=== PATIENT | male | born 1985 | race African-American/Black ===

== ENCOUNTER 2019-10-05 19:46 | Inpatient (IN) | payer BC ==
[~2019-10-05] VITALS: Ht 180.3 cm; Wt 103.4 kg
[2019-10-05] VITALS: BP 180/99
[2019-10-05 19:49] VITALS: BP 187/74
[2019-10-05] MEDS ORDERED: PIPERACILLIN/TAZOBACTAM 3.375 GM in DEXTROSE 5% 50 ML IV ONE (20:15)
[2019-10-05] MEDS ORDERED: LEVOFLOXACIN 750 MG/D5W PREMIX 150 ML IV ONE (20:15)
[2019-10-05] MEDS ORDERED: NACL 0.9% 1,000 ML IV ONE (20:15)
[2019-10-05] MEDS ORDERED: PIPERACILLIN/TAZOBACTAM 3.375 GM VIAL IV ONE (21:04)
[2019-10-05 21:10] LABS: PROTHROMBIN TIME 10.8 secs (10.8-13.4)
[2019-10-05 21:11] LABS: ANION GAP 16.1 (8-16); CARBON DIOXIDE 25.9 mmol/L (21-32); CREATININE 0.8 mg/dL (0.6-1.3); TOTAL BILIRUBIN 0.6 mg/dL (0.0-1.0)
[2019-10-05] MEDS: NACL 0.9% 1,000 ML IV SCH ×2 (21:13→22:05)
[2019-10-05] MEDS ORDERED: ONDANSETRON 4 MG/2 ML VIAL IVP PRN ×2 (21:15→22:00)
[2019-10-05] MEDS ORDERED: BLOOD GLUCOSE MONITORING 1 DEV DEV FS ONE (21:15)
[2019-10-05] MEDS ORDERED: MEPERIDINE 25 MG/ML SYR IVP PRN (21:15)
[2019-10-05] MEDS ORDERED: HYDROmorphone 1 MG/ML AMP IVP PRN (21:15)
[2019-10-05 21:18] LABS: BASOPHILS # (AUTO) 0.1 K/uL (0.00-0.22); BASOPHILS % (AUTO) 0.4 % (0.0-2.0); EOSINOPHILS % (AUTO) 0.1 % (0.0-4.0); HEMATOCRIT 34.8 % (36-52); HEMOGLOBIN 11.2 g/dL (12.0-18.0); LYMPHOCYTES # (AUTO) 1.4 K/uL (2.0-11.5); LYMPHOCYTES % (AUTO) 9.5 % (20.5-51.1); MEAN CORPUSCULAR HEMOGLOBIN 26 pg (27-31); MEAN CORPUSCULAR HGB CONC 32 g/dL (33-37); MEAN CORPUSCULAR VOLUME 80.1 fL (80-94); MONOCYTES # (AUTO) 0.7 K/uL (0.8-1.0); MONOCYTES % (AUTO) 4.4 % (1.7-9.3); NEUTROPHILS % (AUTO) 85.6 % (42.2-75.2); PLATELET COUNT (AUTO) 471 K/uL (140-450); RED BLOOD CELL COUNT(AUTO) 4.34 MIL/uL (4.20-6.10); RED CELL DISTRIBUTION WIDTH 12.7 % (11.6-13.7); WHITE BLOOD COUNT (AUTO) 15.2 K/uL (4.8-10.8)
[2019-10-05] MEDS ORDERED: BUPIVACAINE-MPF 0.5% 30 ML VIAL INJ ONE (21:30)
[2019-10-05] MEDS ORDERED: LIDOCAINE 2% 1000 MG/50 ML VIAL INJ ONE (21:30)
[2019-10-05] MEDS ORDERED: LABETALOL 100 MG/20 ML VIAL ONE (21:33)
[2019-10-05] MEDS ORDERED: MIDAZOLAM 2 MG/2 ML VIAL ONE (21:33)
[2019-10-05] MEDS ORDERED: METOPROLOL 5 MG/5 ML VIAL ONE (21:33)
[2019-10-05] MEDS ORDERED: fentaNYL citrate 0.05 MG/ML VIAL ONE (21:33)
[2019-10-05] MEDS ORDERED: MAG SULF 2000 MG/WATER PREMIX 50 ML IV PRN (22:00)
[2019-10-05] MEDS ORDERED: ACETAMINOPHEN 325 MG TAB PO PRN (22:00)
[2019-10-05] MEDS ORDERED: DOCUSATE SODIUM 100 MG GELCAP PO PRN (22:00)
[2019-10-05] MEDS ORDERED: VANCOMYCIN PER PHARMACY MC PRN (22:00)
[2019-10-05] MEDS ORDERED: ZOLPIDEM 10 MG TAB PO PRN (22:00)
[2019-10-05] MEDS ORDERED: LORazepam 2 MG/ML VIAL IVP PRN (22:00)
[2019-10-05] MEDS ORDERED: MORPHINE SULFATE 2 MG/ML SYR IVP PRN (22:00)
[2019-10-05] MEDS ORDERED: DEXTROSE 50% 50 ML SYR IVP PRN (22:00)
[2019-10-05] MEDS ORDERED: POTASSIUM CHLORIDE 10 MEQ TABER PO PRN (22:00)
[2019-10-05] MEDS: LABETALOL 100 MG/20 ML VIAL IVP ONE ×2 (22:40→22:50)
[2019-10-06] MEDS ORDERED: METOPROLOL 25 MG TAB ONE (00:29)
[2019-10-06] MEDS ORDERED: METOPROLOL 25 MG TAB PO SCH ×2 (02:49→09:00)
[2019-10-06] MEDS: NACL 0.9% 1,000 ML IV SCH ×5 (05:33→22:40)
[2019-10-06] MEDS: INSULIN LISPRO SLIDING SCALE 100 UNITS/ML VIAL SUBQ PRN ×2 (06:22→18:38)
[2019-10-06 06:25] LABS: BASOPHILS # (AUTO) 0.1 K/uL (0.00-0.22); BASOPHILS % (AUTO) 0.5 % (0.0-2.0); EOSINOPHILS % (AUTO) 0.3 % (0.0-4.0); HEMATOCRIT 29.5 % (36-52); HEMOGLOBIN 9.6 g/dL (12.0-18.0); LYMPHOCYTES # (AUTO) 1.3 K/uL (2.0-11.5); LYMPHOCYTES % (AUTO) 10.8 % (20.5-51.1); MEAN CORPUSCULAR HEMOGLOBIN 26 pg (27-31); MEAN CORPUSCULAR HGB CONC 33 g/dL (33-37); MEAN CORPUSCULAR VOLUME 80.6 fL (80-94); MONOCYTES # (AUTO) 0.9 K/uL (0.8-1.0); MONOCYTES % (AUTO) 7.2 % (1.7-9.3); NEUTROPHILS # (AUTO) 9.8 K/uL (1.8-7.7); NEUTROPHILS % (AUTO) 81.2 % (42.2-75.2); PLATELET COUNT (AUTO) 366 K/uL (140-450); RED BLOOD CELL COUNT(AUTO) 3.66 MIL/uL (4.20-6.10); RED CELL DISTRIBUTION WIDTH 12.8 % (11.6-13.7)
[2019-10-06 06:44] LABS: CARBON DIOXIDE 26.5 mmol/L (21-32); CREATININE 0.7 mg/dL (0.6-1.3); POTASSIUM 3.5 mmol/L (3.5-5.1)
[2019-10-06] MEDS ORDERED: ZOLPIDEM 10 MG TAB PO PRN (07:45)
[2019-10-06] MEDS ORDERED: POTASSIUM CHLORIDE 10 MEQ TABER PO PRN (07:45)
[2019-10-06] MEDS ORDERED: LORazepam 2 MG/ML VIAL IVP PRN (07:45)
[2019-10-06] MEDS ORDERED: MORPHINE SULFATE 2 MG/ML SYR IVP PRN (07:45)
[2019-10-06] MEDS ORDERED: DOCUSATE SODIUM 100 MG GELCAP PO PRN (07:45)
[2019-10-06] MEDS ORDERED: ONDANSETRON 4 MG/2 ML VIAL IVP PRN (07:45)
[2019-10-06] MEDS ORDERED: ACETAMINOPHEN 325 MG TAB PO PRN (07:45)
[2019-10-06 08:00] VITALS: BP 159/91
[2019-10-06] MEDS: metFORMIN 850 MG TAB PO SCH ×2 (08:00→17:15)
[2019-10-06] MEDS: BLOOD GLUCOSE MONITORING 1 DEV DEV FS SCH ×4 (09:00→21:00)
[2019-10-06] MEDS: METOPROLOL 25 MG TAB PO SCH ×2 (09:34→22:27)
[2019-10-06] MEDS: lisinopriL 10 MG TAB PO SCH (09:34)
[2019-10-06] MEDS: VANCOMYCIN 2,000 MG in NACL 0.9% 500 ML IV SCH ×2 (11:42→23:11)
[2019-10-06] MEDS: LEVOFLOXACIN 500 MG/D5W PREMIX 100 ML IV SCH (14:45)
[2019-10-06 16:00] VITALS: BP 146/73
[2019-10-06 17:37] LABS: BASOPHILS # (AUTO) 0.1 K/uL (0.00-0.22); BASOPHILS % (AUTO) 0.6 % (0.0-2.0); EOSINOPHILS % (AUTO) 0.3 % (0.0-4.0); HEMATOCRIT 28.9 % (36-52); HEMOGLOBIN 9.4 g/dL (12.0-18.0); LYMPHOCYTES % (AUTO) 17.8 % (20.5-51.1); MEAN CORPUSCULAR HEMOGLOBIN 26 pg (27-31); MEAN CORPUSCULAR HGB CONC 33 g/dL (33-37); MEAN CORPUSCULAR VOLUME 80.7 fL (80-94); MONOCYTES # (AUTO) 0.7 K/uL (0.8-1.0); MONOCYTES % (AUTO) 6.7 % (1.7-9.3); NEUTROPHILS # (AUTO) 8.2 K/uL (1.8-7.7); NEUTROPHILS % (AUTO) 74.6 % (42.2-75.2); PLATELET COUNT (AUTO) 392 K/uL (140-450); RED BLOOD CELL COUNT(AUTO) 3.58 MIL/uL (4.20-6.10); RED CELL DISTRIBUTION WIDTH 12.9 % (11.6-13.7)
[2019-10-06] MEDS ORDERED: VANCOMYCIN 1,000 MG VIAL ONE (22:33)
[2019-10-07] VITALS: BP 158/98
[2019-10-07] MEDS: NACL 0.9% 1,000 ML IV SCH ×3 (04:05→14:05)
[2019-10-07] MEDS: INSULIN LISPRO SLIDING SCALE 100 UNITS/ML VIAL SUBQ PRN ×2 (06:59→16:38)
[2019-10-07 08:00] VITALS: BP 162/108
[2019-10-07] MEDS: BLOOD GLUCOSE MONITORING 1 DEV DEV FS SCH ×4 (08:08→20:58)
[2019-10-07 08:19] LABS: ANION GAP 11.8 (8-16); CREATININE 0.6 mg/dL (0.6-1.3); POTASSIUM 3.8 mmol/L (3.5-5.1)
[2019-10-07 08:35] LABS: BASOPHILS # (AUTO) 0.1 K/uL (0.00-0.22); BASOPHILS % (AUTO) 0.6 % (0.0-2.0); EOSINOPHILS # (AUTO) 0.1 K/uL (0-0.4); EOSINOPHILS % (AUTO) 0.6 % (0.0-4.0); HEMATOCRIT 27.3 % (36-52); HEMOGLOBIN 8.9 g/dL (12.0-18.0); LYMPHOCYTES # (AUTO) 1.9 K/uL (2.0-11.5); MEAN CORPUSCULAR HEMOGLOBIN 27 pg (27-31); MEAN CORPUSCULAR HGB CONC 33 g/dL (33-37); MEAN CORPUSCULAR VOLUME 81.5 fL (80-94); MONOCYTES # (AUTO) 0.6 K/uL (0.8-1.0); MONOCYTES % (AUTO) 6.3 % (1.7-9.3); NEUTROPHILS # (AUTO) 6.4 K/uL (1.8-7.7); NEUTROPHILS % (AUTO) 71.5 % (42.2-75.2); PLATELET COUNT (AUTO) 323 K/uL (140-450); RED BLOOD CELL COUNT(AUTO) 3.35 MIL/uL (4.20-6.10); RED CELL DISTRIBUTION WIDTH 12.9 % (11.6-13.7); WHITE BLOOD COUNT (AUTO) 8.9 K/uL (4.8-10.8)
[2019-10-07] MEDS: metFORMIN 850 MG TAB PO SCH ×2 (08:43→16:36)
[2019-10-07] MEDS: lisinopriL 10 MG TAB PO SCH (08:43)
[2019-10-07] MEDS: METOPROLOL 25 MG TAB PO SCH ×2 (08:43→20:58)
[2019-10-07] MEDS ORDERED: INSULIN LISPRO SLIDING SCALE 100 UNITS/ML VIAL SUBQ PRN (11:00)
[2019-10-07] MEDS ORDERED: DEXTROSE 50% 50 ML SYR IVP PRN (11:00)
[2019-10-07] MEDS ORDERED: lisinopriL 20 MG TAB PO SCH (11:05)
[2019-10-07] MEDS ORDERED: BLOOD GLUCOSE MONITORING 1 DEV DEV FS SCH (11:30)
[2019-10-07] MEDS: LEVOFLOXACIN 500 MG/D5W PREMIX 100 ML IV SCH (11:57)
[2019-10-07] MEDS: MAG SULF 2000 MG/WATER PREMIX 50 ML IV PRN (13:14)
[2019-10-07] MEDS: VANCOMYCIN 2,000 MG in NACL 0.9% 500 ML IV SCH ×2 (14:45→22:59)
[2019-10-07 16:00] VITALS: BP 113/105
[2019-10-07] MEDS ORDERED: VANCOMYCIN 1,000 MG VIAL ONE (22:50)
[2019-10-08] VITALS: BP 167/102
[2019-10-08] MEDS: NACL 0.9% 1,000 ML IV SCH ×3 (00:05→20:05)
[2019-10-08] MEDS ORDERED: hydrALAZINE 20 MG/ML VIAL IVP ONE (00:35)
[2019-10-08] MEDS: BLOOD GLUCOSE MONITORING 1 DEV DEV FS SCH ×4 (06:35→21:00)
[2019-10-08] MEDS: INSULIN LISPRO SLIDING SCALE 100 UNITS/ML VIAL SUBQ PRN ×3 (06:36→22:17)
[2019-10-08] MEDS ORDERED: VANCOMYCIN 1,000 MG VIAL ONE (06:41)
[2019-10-08] MEDS: VANCOMYCIN 2,000 MG in NACL 0.9% 500 ML IV SCH ×3 (06:44→23:42)
[2019-10-08 08:00] VITALS: BP 184/106
[2019-10-08] MEDS: metFORMIN 850 MG TAB PO SCH (08:09)
[2019-10-08] MEDS: METOPROLOL 25 MG TAB PO SCH ×2 (08:09→22:05)
[2019-10-08] MEDS: lisinopriL 20 MG TAB PO SCH (08:09)
[2019-10-08 08:13] LABS: ANION GAP 12.4 (8-16); CARBON DIOXIDE 26.1 mmol/L (21-32); CREATININE 0.7 mg/dL (0.6-1.3); POTASSIUM 3.5 mmol/L (3.5-5.1)
[2019-10-08] MEDS ORDERED: NACL 0.9% 1,000 ML IV SCH (09:11)
[2019-10-08] MEDS ORDERED: LIDOCAINE 2% 1000 MG/50 ML VIAL INJ ONE (09:12)
[2019-10-08] MEDS ORDERED: BUPIVACAINE-MPF 0.5% 30 ML VIAL INJ ONE (09:12)
[2019-10-08] MEDS ORDERED: ONDANSETRON 4 MG/2 ML VIAL IVP PRN (09:15)
[2019-10-08] MEDS ORDERED: BLOOD GLUCOSE MONITORING 1 DEV DEV FS ONE (09:15)
[2019-10-08] MEDS ORDERED: MEPERIDINE 25 MG/ML SYR IVP PRN (09:15)
[2019-10-08] MEDS ORDERED: HYDROmorphone 1 MG/ML AMP IVP PRN (09:15)
[2019-10-08] MEDS ORDERED: fentaNYL citrate 0.05 MG/ML VIAL ONE (09:31)
[2019-10-08] MEDS ORDERED: METOPROLOL 5 MG/5 ML VIAL ONE (09:31)
[2019-10-08] MEDS ORDERED: MIDAZOLAM 2 MG/2 ML VIAL ONE (09:31)
[2019-10-08 10:11] LABS: BASOPHILS # (AUTO) 0.1 K/uL (0.00-0.22); BASOPHILS % (AUTO) 0.9 % (0.0-2.0); EOSINOPHILS # (AUTO) 0.1 K/uL (0-0.4); EOSINOPHILS % (AUTO) 0.9 % (0.0-4.0); HEMATOCRIT 27.9 % (36-52); HEMOGLOBIN 9.3 g/dL (12.0-18.0); LYMPHOCYTES # (AUTO) 1.9 K/uL (2.0-11.5); LYMPHOCYTES % (AUTO) 21.9 % (20.5-51.1); MEAN CORPUSCULAR HEMOGLOBIN 27 pg (27-31); MEAN CORPUSCULAR HGB CONC 33 g/dL (33-37); MEAN CORPUSCULAR VOLUME 80.7 fL (80-94); MONOCYTES # (AUTO) 0.5 K/uL (0.8-1.0); MONOCYTES % (AUTO) 5.6 % (1.7-9.3); NEUTROPHILS # (AUTO) 6.3 K/uL (1.8-7.7); NEUTROPHILS % (AUTO) 70.7 % (42.2-75.2); PLATELET COUNT (AUTO) 388 K/uL (140-450); RED BLOOD CELL COUNT(AUTO) 3.46 MIL/uL (4.20-6.10); RED CELL DISTRIBUTION WIDTH 12.9 % (11.6-13.7); WHITE BLOOD COUNT (AUTO) 8.9 K/uL (4.8-10.8)
[2019-10-08] MEDS: LEVOFLOXACIN 500 MG/D5W PREMIX 100 ML IV SCH (12:34)
[2019-10-08 16:00] VITALS: BP 148/78
[2019-10-08] MEDS: INSULIN LANTUS 100 UNITS/ML 10 ML VIAL SUBQ SCH (21:00)
[2019-10-09] VITALS: BP 160/99
[2019-10-09] MEDS: NACL 0.9% 1,000 ML IV SCH ×2 (04:04→16:05)
[2019-10-09] MEDS ORDERED: VANCOMYCIN 1,000 MG VIAL ONE (05:53)
[2019-10-09] MEDS: BLOOD GLUCOSE MONITORING 1 DEV DEV FS SCH ×4 (06:01→20:43)
[2019-10-09] MEDS: INSULIN LISPRO SLIDING SCALE 100 UNITS/ML VIAL SUBQ PRN ×3 (06:04→20:42)
[2019-10-09] MEDS: VANCOMYCIN 2,000 MG in NACL 0.9% 500 ML IV SCH ×3 (06:22→22:43)
[2019-10-09 06:29] LABS: BASOPHILS # (AUTO) 0.1 K/uL (0.00-0.22); BASOPHILS % (AUTO) 0.8 % (0.0-2.0); EOSINOPHILS # (AUTO) 0.1 K/uL (0-0.4); HEMATOCRIT 27.1 % (36-52); HEMOGLOBIN 9.1 g/dL (12.0-18.0); LYMPHOCYTES # (AUTO) 1.6 K/uL (2.0-11.5); LYMPHOCYTES % (AUTO) 18.5 % (20.5-51.1); MEAN CORPUSCULAR HEMOGLOBIN 27 pg (27-31); MEAN CORPUSCULAR HGB CONC 34 g/dL (33-37); MEAN CORPUSCULAR VOLUME 80.9 fL (80-94); MONOCYTES # (AUTO) 0.4 K/uL (0.8-1.0); NEUTROPHILS # (AUTO) 6.5 K/uL (1.8-7.7); NEUTROPHILS % (AUTO) 74.7 % (42.2-75.2); PLATELET COUNT (AUTO) 376 K/uL (140-450); RED BLOOD CELL COUNT(AUTO) 3.35 MIL/uL (4.20-6.10); RED CELL DISTRIBUTION WIDTH 12.8 % (11.6-13.7); WHITE BLOOD COUNT (AUTO) 8.7 K/uL (4.8-10.8)
[2019-10-09 06:45] LABS: ANION GAP 12.6 (8-16); CARBON DIOXIDE 25.8 mmol/L (21-32); CREATININE 0.7 mg/dL (0.6-1.3); POTASSIUM 3.4 mmol/L (3.5-5.1)
[2019-10-09 08:00] VITALS: BP 162/105
[2019-10-09] MEDS: lisinopriL 20 MG TAB PO SCH (08:44)
[2019-10-09] MEDS: METOPROLOL 25 MG TAB PO SCH ×3 (08:44→20:34)
[2019-10-09] MEDS: LEVOFLOXACIN 500 MG/D5W PREMIX 100 ML IV SCH (12:37)
[2019-10-09] MEDS: NIFEdipine 30 MG TABER PO SCH (15:33)
[2019-10-09 16:00] VITALS: BP 177/106
[2019-10-09] MEDS ORDERED: METOPROLOL 25 MG TAB PO SCH (18:20)
[2019-10-09] MEDS: INSULIN LANTUS 100 UNITS/ML 10 ML VIAL SUBQ SCH (20:41)
[2019-10-09 23:45] VITALS: BP 152/97
[2019-10-10] MEDS: NACL 0.9% 1,000 ML IV SCH ×3 (02:05→22:05)
[2019-10-10] MEDS: BLOOD GLUCOSE MONITORING 1 DEV DEV FS SCH ×4 (06:00→20:27)
[2019-10-10] MEDS ORDERED: VANCOMYCIN 1,000 MG VIAL ONE (06:24)
[2019-10-10] MEDS: VANCOMYCIN 2,000 MG in NACL 0.9% 500 ML IV SCH ×3 (06:36→22:28)
[2019-10-10 06:58] LABS: BASOPHILS # (AUTO) 0.1 K/uL (0.00-0.22); BASOPHILS % (AUTO) 0.9 % (0.0-2.0); EOSINOPHILS # (AUTO) 0.2 K/uL (0-0.4); EOSINOPHILS % (AUTO) 1.7 % (0.0-4.0); HEMATOCRIT 28.5 % (36-52); HEMOGLOBIN 9.5 g/dL (12.0-18.0); LYMPHOCYTES # (AUTO) 1.5 K/uL (2.0-11.5); LYMPHOCYTES % (AUTO) 15.5 % (20.5-51.1); MEAN CORPUSCULAR HEMOGLOBIN 27 pg (27-31); MEAN CORPUSCULAR HGB CONC 33 g/dL (33-37); MEAN CORPUSCULAR VOLUME 80.3 fL (80-94); MONOCYTES # (AUTO) 0.6 K/uL (0.8-1.0); MONOCYTES % (AUTO) 6.3 % (1.7-9.3); NEUTROPHILS # (AUTO) 7.2 K/uL (1.8-7.7); NEUTROPHILS % (AUTO) 75.6 % (42.2-75.2); PLATELET COUNT (AUTO) 421 K/uL (140-450); RED BLOOD CELL COUNT(AUTO) 3.55 MIL/uL (4.20-6.10); RED CELL DISTRIBUTION WIDTH 12.9 % (11.6-13.7); WHITE BLOOD COUNT (AUTO) 9.5 K/uL (4.8-10.8)
[2019-10-10 07:45] LABS: ANION GAP 12.3 (8-16); CREATININE 0.7 mg/dL (0.6-1.3); POTASSIUM 3.3 mmol/L (3.5-5.1)
[2019-10-10 08:00] VITALS: BP 156/94
[2019-10-10] MEDS: NIFEdipine 30 MG TABER PO SCH (09:12)
[2019-10-10] MEDS: lisinopriL 20 MG TAB PO SCH (09:13)
[2019-10-10] MEDS: METOPROLOL 25 MG TAB PO SCH ×2 (09:13→20:28)
[2019-10-10] MEDS: LEVOFLOXACIN 500 MG/D5W PREMIX 100 ML IV SCH (12:03)
[2019-10-10 16:00] VITALS: BP 152/95
[2019-10-10] MEDS: INSULIN LANTUS 100 UNITS/ML 10 ML VIAL SUBQ SCH (20:34)
[2019-10-11 00:42] VITALS: BP 134/82
[2019-10-11] MEDS: NACL 0.9% 1,000 ML IV SCH (01:07)
[2019-10-11] MEDS ORDERED: VANCOMYCIN 1,000 MG VIAL ONE (05:48)
[2019-10-11] MEDS: BLOOD GLUCOSE MONITORING 1 DEV DEV FS SCH ×2 (06:14→12:09)
[2019-10-11 06:38] LABS: BASOPHILS # (AUTO) 0.1 K/uL (0.00-0.22); BASOPHILS % (AUTO) 0.9 % (0.0-2.0); EOSINOPHILS # (AUTO) 0.2 K/uL (0-0.4); EOSINOPHILS % (AUTO) 1.7 % (0.0-4.0); HEMATOCRIT 29.2 % (36-52); HEMOGLOBIN 9.7 g/dL (12.0-18.0); LYMPHOCYTES # (AUTO) 1.3 K/uL (2.0-11.5); LYMPHOCYTES % (AUTO) 14.2 % (20.5-51.1); MEAN CORPUSCULAR HEMOGLOBIN 27 pg (27-31); MEAN CORPUSCULAR HGB CONC 33 g/dL (33-37); MEAN CORPUSCULAR VOLUME 80.7 fL (80-94); MONOCYTES # (AUTO) 0.6 K/uL (0.8-1.0); MONOCYTES % (AUTO) 6.8 % (1.7-9.3); NEUTROPHILS # (AUTO) 7.2 K/uL (1.8-7.7); NEUTROPHILS % (AUTO) 76.4 % (42.2-75.2); PLATELET COUNT (AUTO) 398 K/uL (140-450); RED BLOOD CELL COUNT(AUTO) 3.62 MIL/uL (4.20-6.10); RED CELL DISTRIBUTION WIDTH 13.4 % (11.6-13.7); WHITE BLOOD COUNT (AUTO) 9.4 K/uL (4.8-10.8)
[2019-10-11] MEDS: VANCOMYCIN 2,000 MG in NACL 0.9% 500 ML IV SCH ×2 (06:40→15:00)
[2019-10-11 07:28] LABS: ANION GAP 11.3 (8-16); CARBON DIOXIDE 28.9 mmol/L (21-32); CREATININE 0.7 mg/dL (0.6-1.3); POTASSIUM 3.2 mmol/L (3.5-5.1)
[2019-10-11 07:58] LABS: MAGNESIUM 1.5 mg/dL (1.8-2.4); PHOSPHORUS 3.2 mg/dL (2.5-4.9)
[2019-10-11 08:00] VITALS: BP 144/95
[2019-10-11] MEDS: MAG SULF 2000 MG/WATER PREMIX 50 ML IV PRN (08:33)
[2019-10-11] MEDS: METOPROLOL 25 MG TAB PO SCH (08:34)
[2019-10-11] MEDS: lisinopriL 20 MG TAB PO SCH (08:35)
[2019-10-11] MEDS: NIFEdipine 30 MG TABER PO SCH (08:36)
[2019-10-11 09:29] LABS: APPEARANCE,URINE CLEAR (CLEAR); BILIRUBIN,URINE NEGATIVE (NEGATIVE); BLOOD, URINE NEGATIVE (NEGATIVE); COLOR,URINE YELLOW (YELLOW); LEUKOCYTE ESTERASE ,URINE NEGATIVE (NEGATIVE); NITRITE, URINE NEGATIVE (NEGATIVE); PH,URINE 6.5 (5.0-9.0); UGLUCOSE NEGATIVE (NEGATIVE)
[2019-10-11] MEDS: LEVOFLOXACIN 500 MG/D5W PREMIX 100 ML IV SCH (12:12)
[2019-10-11] MEDS ORDERED: LANTUS SUBQ (14:44)
[2019-10-11] MEDS ORDERED: GLUC-805 FS (14:44)
[2019-10-11] MEDS ORDERED: CLIN75CA2 PO (14:44)
[2019-10-11] MEDS ORDERED: NIFE30TA36 PO (14:44)
[2019-10-11] MEDS ORDERED: METO25TA PO (14:44)
[2019-10-11] MEDS ORDERED: LEVO750T2 PO (14:44)
[2019-10-11] MEDS ORDERED: HYDR-5122 PO (14:44)
[2019-10-11] MEDS ORDERED: LACT1CAP59 PO (14:44)
[2019-10-11 15:05] VITALS: BP 140/95
[2019-10-11] MEDS ORDERED: MAG SULF 2000 MG/WATER PREMIX 50 ML IV SCH (15:30)
[2019-10-11] MEDS ORDERED: POTASSIUM CHLORIDE 40 MEQ, LIDOCAINE MPF 1% 25 MG in NACL 0.9% 250 ML IV SCH (17:00)
[2019-10-11 17:26] LABS: MAGNESIUM 1.4 mg/dL (1.8-2.4); POTASSIUM 3.3 mmol/L (3.5-5.1)
== END 2019-10-11 16:25 | disposition home health service (06) | DRG 853 ==
LOC: MED 19:46 → MMU 21:06
PROVIDERS: ADMIT General Practice; ATTEND General Practice
PROC: 0QBN0ZX Excision of Right Metatarsal, Open Approach, Diagnostic (ICD-10-PCS; 2019-10-05)
PROC: 0JBQ0ZZ Excision of Right Foot Subcutaneous Tissue and Fascia, Open Approach (ICD-10-PCS; principal; 2019-10-05 21:15)
PROC: 0QTN0ZZ Resection of Right Metatarsal, Open Approach (ICD-10-PCS; 2019-10-08)
DX: A41.9 Sepsis, unspecified organism (principal); A48.0 Gas gangrene; E11.52 Type 2 diabetes mellitus with diabetic peripheral angiopathy with gangrene; M86.8X7 Other osteomyelitis, ankle and foot; L03.115 Cellulitis of right lower limb; E11.621 Type 2 diabetes mellitus with foot ulcer; I10 Essential (primary) hypertension; L97.519 Non-pressure chronic ulcer of other part of right foot with unspecified severity; E11.65 Type 2 diabetes mellitus with hyperglycemia; E11.9 Type 2 diabetes mellitus without complications; I16.0 Hypertensive urgency; E83.42 Hypomagnesemia; E87.6 Hypokalemia
CPT/HCPCS: 36415; 73630; 73700; 80048; 80053; 80202; 81003; 82948; 83036; 83605; 83735; 84100; 84132; 85025; 85610; 85651; 85730; 86140; 86886; 86900; 86901; 87040; 87070; 87075; 87081; 87205; 96374; 99285; J0360; J1644; J1815; J1956; J2001; J2060; J2250; J2543; J3010; J3370; J3475; J3480; J3490; J7030; J7060; Q0092

== ENCOUNTER 2023-12-03 21:07 | Inpatient (IN) | payer BC ==
[~2023-12-03] VITALS: Ht 180.3 cm; Wt 107.5 kg
[~2023-12-03 21:07] MED LIST: CLIN75CA3 PO; GLUC-805 FS; HYDR-5122 PO; LACT1CAP59 PO; LANTUS SUBQ; LEVO750T2 PO; METO25TA PO; NIFE30TA36 PO
[2023-12-03 21:19] VITALS: BP 182/101; PULSE 109; RESP 16; TEMP 96.7; O2SAT 98
[2023-12-03] MEDS ORDERED: PIPERACILLIN/TAZOBACTAM 4.5 GM VIAL IV ONE (21:50)
[2023-12-03 22:12] LABS: BASOPHILS # (AUTO) 0.1 K/uL (0.00-0.22); BASOPHILS % (AUTO) 0.7 % (0.0-2.0); EOSINOPHILS # (AUTO) 0.1 K/uL (0-0.4); EOSINOPHILS % (AUTO) 0.8 % (0.0-4.0); HEMATOCRIT 34.9 % (36-52); HEMOGLOBIN 11.7 g/dL (12.0-18.0); LYMPHOCYTES # (AUTO) 1.6 K/uL (2.0-11.5); LYMPHOCYTES % (AUTO) 17.6 % (20.5-51.1); MEAN CORPUSCULAR HEMOGLOBIN 26 pg (27-31); MEAN CORPUSCULAR HGB CONC 34 g/dL (33-37); MEAN CORPUSCULAR VOLUME 76.7 fL (80-94); MONOCYTES # (AUTO) 0.7 K/uL (0.8-1.0); MONOCYTES % (AUTO) 7.3 % (1.7-9.3); NEUTROPHILS # (AUTO) 6.8 K/uL (1.8-7.7); NEUTROPHILS % (AUTO) 73.6 % (42.2-75.2); PLATELET COUNT (AUTO) 510 K/uL (140-450); RED BLOOD CELL COUNT(AUTO) 4.56 MIL/uL (4.20-6.10); RED CELL DISTRIBUTION WIDTH 14.6 % (11.6-13.7); WHITE BLOOD COUNT (AUTO) 9.2 K/uL (4.8-10.8)
[2023-12-03] MEDS: PIPERACILLIN/TAZOBACTAM 4.5 GM in DEXTROSE 5% 100 ML IV ONE (22:20)
[2023-12-03] MEDS ORDERED: VANCOMYCIN 1,000 MG VIAL ONE (22:25)
[2023-12-03 22:37] LABS: ALBUMIN 2.7 g/dL (3.4-5.0); ANION GAP 10.3 (8-16); CALCIUM 10.4 mg/dL (8.5-10.1); CARBON DIOXIDE 30.2 mmol/L (21-32); CREATININE 1.3 mg/dL (0.6-1.3); POTASSIUM 4.5 mmol/L (3.5-5.1); TOTAL BILIRUBIN 0.3 mg/dL (0.0-1.0); TOTAL PROTEIN, SERUM 8.8 g/dL (6.4-8.2)
[2023-12-03] MEDS: CLINDAMYCIN 600 MG/4 ML VIAL IV ONE (23:08)
[2023-12-03] MEDS: VANCOMYCIN 1,000 MG in DEXTROSE 5% 250 ML IV ONE (23:30)
[2023-12-04] MEDS: INSULIN REGULAR, HUMAN 100 UNIT/ML VIAL SUBQ ONE
[2023-12-04] MEDS: NACL 0.9% 1,000 ML IV ONE (00:10)
[2023-12-04] MEDS ORDERED: ONDANSETRON 4 MG/2 ML VIAL IVP PRN ×2 (00:10→10:15)
[2023-12-04] MEDS ORDERED: VANCOMYCIN PER PHARMACY MC PRN (00:10)
[2023-12-04 03:00] VITALS: PULSE 109; RESP 18; O2SAT 96
[2023-12-04] MEDS: NACL 0.9% 1,000 ML IV SCH ×2 (03:08→10:15)
[2023-12-04] MEDS ORDERED: hydrALAZINE 20 MG/ML VIAL IVP PRN (03:25)
[2023-12-04 03:30] VITALS: BP 185/105; PULSE 105; RESP 18; TEMP 98.7; O2SAT 97
[2023-12-04] MEDS: hydrALAZINE 20 MG/ML VIAL IVP PRN (03:50)
[2023-12-04] MEDS: CLINDAMYCIN 600 MG in DEXTROSE 5% 50 ML IV SCH (05:58)
[2023-12-04] MEDS: CLINDAMYCIN 600 MG/4 ML VIAL ONE (06:17)
[2023-12-04] MEDS: PIPERACILLIN/TAZOBACTAM 4.5 GM in DEXTROSE 5% 100 ML IV SCH ×2 (06:48→12:37)
[2023-12-04] MEDS: PIPERACILLIN/TAZOBACTAM 4.5 GM VIAL IV ONE (06:54)
[2023-12-04 07:01] LABS: BASOPHILS # (AUTO) 0.1 K/uL (0.00-0.22); BASOPHILS % (AUTO) 0.8 % (0.0-2.0); EOSINOPHILS # (AUTO) 0.1 K/uL (0-0.4); EOSINOPHILS % (AUTO) 0.7 % (0.0-4.0); HEMATOCRIT 31.1 % (36-52); HEMOGLOBIN 10.4 g/dL (12.0-18.0); LYMPHOCYTES # (AUTO) 1.4 K/uL (2.0-11.5); LYMPHOCYTES % (AUTO) 16.7 % (20.5-51.1); MEAN CORPUSCULAR HEMOGLOBIN 25 pg (27-31); MEAN CORPUSCULAR HGB CONC 33 g/dL (33-37); MEAN CORPUSCULAR VOLUME 76.1 fL (80-94); MONOCYTES # (AUTO) 0.8 K/uL (0.8-1.0); MONOCYTES % (AUTO) 9.4 % (1.7-9.3); NEUTROPHILS # (AUTO) 6.2 K/uL (1.8-7.7); NEUTROPHILS % (AUTO) 72.4 % (42.2-75.2); PLATELET COUNT (AUTO) 451 K/uL (140-450); RED BLOOD CELL COUNT(AUTO) 4.09 MIL/uL (4.20-6.10); RED CELL DISTRIBUTION WIDTH 14.4 % (11.6-13.7); WHITE BLOOD COUNT (AUTO) 8.6 K/uL (4.8-10.8)
[2023-12-04 07:18] LABS: ALBUMIN 2.3 g/dL (3.4-5.0); ANION GAP 13.2 (8-16); CALCIUM 9.3 mg/dL (8.5-10.1); CARBON DIOXIDE 25.8 mmol/L (21-32); CREATININE 1.2 mg/dL (0.6-1.3); TOTAL BILIRUBIN 0.3 mg/dL (0.0-1.0); TOTAL PROTEIN, SERUM 7.6 g/dL (6.4-8.2)
[2023-12-04] MEDS ORDERED: PIPERACILLIN/TAZOBACTAM 4.5 GM in DEXTROSE 5% 100 ML IV SCH (07:39)
[2023-12-04 08:00] VITALS: BP 145/91; PULSE 100; RESP 18; TEMP 97.3; O2SAT 96
[2023-12-04] MEDS: INSULIN LISPRO SLIDING SCALE 100 UNITS/ML VIAL SUBQ PRN (08:13)
[2023-12-04] MEDS: HYDROGEN PEROXIDE 3% 240 ML BTL TP ONE (08:47)
[2023-12-04] MEDS: VANCOMYCIN 1.25GM PREMIX 250 ML IV SCH (09:00)
[2023-12-04] MEDS: METOPROLOL 25 MG TAB PO SCH (09:00)
[2023-12-04] MEDS: NIFEdipine 30 MG TABER PO SCH (09:00)
[2023-12-04] MEDS: HYDROcodone/APAP 5/325 MG 1 TAB TAB PO SCH (09:00)
[2023-12-04] MEDS: fentaNYL citrate 0.05 MG/ML VIAL ONE (09:17)
[2023-12-04] MEDS: MIDAZOLAM 2 MG/2 ML VIAL ONE (09:18)
[2023-12-04] MEDS: LIDOCAINE 1% 500 MG/50 ML VIAL ONE (09:32)
[2023-12-04] MEDS: BUPIVACAINE-MPF 0.25% 30 ML VIAL INJ ONE (09:32)
[2023-12-04] MEDS: LABETALOL 20 MG/4 ML VIAL IVP ONE (09:59)
[2023-12-04] MEDS: PROPOFOL 200 MG/20 ML VIAL IV ONE (09:59)
[2023-12-04] MEDS ORDERED: diphenhydrAMINE 50 MG/ML VIAL IVP PRN (10:15)
[2023-12-04] MEDS ORDERED: MEPERIDINE 25 MG/ML SYR IVP PRN (10:15)
[2023-12-04] MEDS ORDERED: BLOOD GLUCOSE MONITORING 1 DEV DEV FS SCH (10:15)
[2023-12-04] MEDS ORDERED: HYDROmorphone 1 MG/ML AMP IVP PRN (10:15)
[2023-12-04] MEDS ORDERED: CLINDAMYCIN 600MG/D5W PM 50 ML IV SCH (12:00)
[2023-12-04 16:00] VITALS: BP 167/97; PULSE 101; RESP 18; TEMP 97.2; O2SAT 97
[2023-12-04] MEDS: INSULIN LANTUS 100 UNITS/ML 10 ML VIAL SUBQ SCH (19:59)
[2023-12-04 20:00] VITALS: BP 142/88; PULSE 112; RESP 18; TEMP 97.8; O2SAT 96
[2023-12-05] VITALS: BP 134/67; PULSE 86; RESP 18; TEMP 98.2; O2SAT 97
[2023-12-05 04:00] VITALS: BP 150/80; PULSE 100; RESP 18; TEMP 97.6; O2SAT 97
[2023-12-05] MEDS: MORPHINE SULFATE 4 MG/ML SYR IVP PRN (04:32)
[2023-12-05 08:00] VITALS: BP 151/91; PULSE 98; RESP 18; TEMP 96.9; O2SAT 98
[2023-12-05 08:04] LABS: BASOPHILS # (AUTO) 0.1 K/uL (0.00-0.22); BASOPHILS % (AUTO) 1.1 % (0.0-2.0); EOSINOPHILS # (AUTO) 0.1 K/uL (0-0.4); EOSINOPHILS % (AUTO) 1.3 % (0.0-4.0); HEMATOCRIT 29.8 % (36-52); LYMPHOCYTES # (AUTO) 1.4 K/uL (2.0-11.5); LYMPHOCYTES % (AUTO) 16.5 % (20.5-51.1); MEAN CORPUSCULAR HEMOGLOBIN 26 pg (27-31); MEAN CORPUSCULAR HGB CONC 33 g/dL (33-37); MEAN CORPUSCULAR VOLUME 77.7 fL (80-94); MONOCYTES # (AUTO) 0.7 K/uL (0.8-1.0); NEUTROPHILS % (AUTO) 73.1 % (42.2-75.2); PLATELET COUNT (AUTO) 400 K/uL (140-450); RED BLOOD CELL COUNT(AUTO) 3.84 MIL/uL (4.20-6.10); RED CELL DISTRIBUTION WIDTH 14.4 % (11.6-13.7); WHITE BLOOD COUNT (AUTO) 8.2 K/uL (4.8-10.8)
[2023-12-05 08:45] LABS: ALBUMIN 2.1 g/dL (3.4-5.0); CALCIUM 8.7 mg/dL (8.5-10.1); CARBON DIOXIDE 27.2 mmol/L (21-32); CREATININE 1.3 mg/dL (0.6-1.3); POTASSIUM 4.2 mmol/L (3.5-5.1); TOTAL BILIRUBIN 0.6 mg/dL (0.0-1.0); TOTAL PROTEIN, SERUM 7.4 g/dL (6.4-8.2)
[2023-12-05 16:00] VITALS: BP 149/90; PULSE 96; RESP 18; TEMP 96; O2SAT 98
[2023-12-05 20:00] VITALS: BP 147/94; PULSE 103; RESP 20; TEMP 98.1; O2SAT 94
[2023-12-05] MEDS: BLOOD GLUCOSE MONITORING 1 DEV DEV FS SCH (20:39)
[2023-12-06 04:00] VITALS: BP 146/90; PULSE 96; RESP 18; TEMP 97.1; O2SAT 94
[2023-12-06 08:00] VITALS: BP 155/96; PULSE 103; PULSE 98; RESP 18; RESP 20; TEMP 97.5; O2SAT 94; O2SAT 96
[2023-12-06 08:25] LABS: BASOPHILS # (AUTO) 0.1 K/uL (0.00-0.22); BASOPHILS % (AUTO) 0.8 % (0.0-2.0); EOSINOPHILS # (AUTO) 0.2 K/uL (0-0.4); HEMATOCRIT 30.7 % (36-52); HEMOGLOBIN 10.1 g/dL (12.0-18.0); LYMPHOCYTES # (AUTO) 1.5 K/uL (2.0-11.5); LYMPHOCYTES % (AUTO) 15.9 % (20.5-51.1); MEAN CORPUSCULAR HEMOGLOBIN 26 pg (27-31); MEAN CORPUSCULAR HGB CONC 33 g/dL (33-37); MEAN CORPUSCULAR VOLUME 77.8 fL (80-94); MONOCYTES # (AUTO) 0.6 K/uL (0.8-1.0); MONOCYTES % (AUTO) 6.5 % (1.7-9.3); NEUTROPHILS % (AUTO) 74.8 % (42.2-75.2); PLATELET COUNT (AUTO) 412 K/uL (140-450); RED BLOOD CELL COUNT(AUTO) 3.95 MIL/uL (4.20-6.10); RED CELL DISTRIBUTION WIDTH 14.7 % (11.6-13.7); WHITE BLOOD COUNT (AUTO) 9.4 K/uL (4.8-10.8)
[2023-12-06 08:33] LABS: ALBUMIN 2.2 g/dL (3.4-5.0); ANION GAP 6.8 (8-16); CALCIUM 8.6 mg/dL (8.5-10.1); CARBON DIOXIDE 29.1 mmol/L (21-32); CREATININE 1.1 mg/dL (0.6-1.3); POTASSIUM 3.9 mmol/L (3.5-5.1); TOTAL BILIRUBIN 0.5 mg/dL (0.0-1.0); TOTAL PROTEIN, SERUM 7.7 g/dL (6.4-8.2)
[2023-12-06] MEDS ORDERED: GAUZE TP PRN (11:50)
[2023-12-06] MEDS: GAUZE TP SCH (13:40)
[2023-12-06 16:00] VITALS: BP 148/97; PULSE 92; RESP 19; TEMP 98; O2SAT 96
[2023-12-06 20:00] VITALS: BP 142/91; PULSE 88; RESP 18; TEMP 97.6; O2SAT 94; O2SAT 95
[2023-12-07 02:00] VITALS: PULSE 110; RESP 20; O2SAT 95
[2023-12-07 04:00] VITALS: BP 147/91; PULSE 85; RESP 19; TEMP 96.7; O2SAT 95
[2023-12-07 06:46] LABS: BASOPHILS # (AUTO) 0.1 K/uL (0.00-0.22); BASOPHILS % (AUTO) 1.3 % (0.0-2.0); EOSINOPHILS # (AUTO) 0.2 K/uL (0-0.4); EOSINOPHILS % (AUTO) 2.3 % (0.0-4.0); HEMATOCRIT 30.8 % (36-52); HEMOGLOBIN 10.1 g/dL (12.0-18.0); LYMPHOCYTES # (AUTO) 1.4 K/uL (2.0-11.5); LYMPHOCYTES % (AUTO) 16.4 % (20.5-51.1); MEAN CORPUSCULAR HEMOGLOBIN 25 pg (27-31); MEAN CORPUSCULAR HGB CONC 33 g/dL (33-37); MEAN CORPUSCULAR VOLUME 77.7 fL (80-94); MONOCYTES # (AUTO) 0.5 K/uL (0.8-1.0); MONOCYTES % (AUTO) 6.2 % (1.7-9.3); NEUTROPHILS # (AUTO) 6.4 K/uL (1.8-7.7); NEUTROPHILS % (AUTO) 73.8 % (42.2-75.2); PLATELET COUNT (AUTO) 413 K/uL (140-450); RED BLOOD CELL COUNT(AUTO) 3.96 MIL/uL (4.20-6.10); RED CELL DISTRIBUTION WIDTH 14.5 % (11.6-13.7); WHITE BLOOD COUNT (AUTO) 8.6 K/uL (4.8-10.8)
[2023-12-07 07:15] LABS: ANION GAP 11.8 (8-16); CALCIUM 8.7 mg/dL (8.5-10.1); CARBON DIOXIDE 26.9 mmol/L (21-32); CREATININE 1.1 mg/dL (0.6-1.3); POTASSIUM 3.7 mmol/L (3.5-5.1)
[2023-12-07 08:00] VITALS: BP 154/95; PULSE 88; PULSE 91; RESP 18; RESP 20; TEMP 97; O2SAT 94; O2SAT 98
[2023-12-07 16:00] VITALS: BP 165/95; PULSE 88; RESP 20; TEMP 97.6; O2SAT 100
[2023-12-07 20:00] VITALS: BP 147/91; PULSE 110; PULSE 85; RESP 19; RESP 20; TEMP 96.7; O2SAT 95
[2023-12-08 04:00] VITALS: BP 152/95; PULSE 93; RESP 19; TEMP 98.1; O2SAT 97
[2023-12-08 08:00] VITALS: PULSE 95; RESP 19; O2SAT 98
[2023-12-08 12:00] VITALS: BP 152/95; PULSE 93; RESP 19; TEMP 98.1; O2SAT 97
[2023-12-08] MEDS ORDERED: LEVO750T75 PO (15:25)
[2023-12-08] MEDS ORDERED: CLIN150C1 PO (15:26)
[2023-12-08 15:31] VITALS: BP 152/95; PULSE 93; RESP 19; TEMP 98.1
== END 2023-12-08 16:25 | disposition home or self-care (01) | DRG 503 ==
LOC: MED 21:07 → MMU 12-04 00:27 → MTU 12-04 01:35
PROVIDERS: ADMIT Student in an Organized Health Care Education/Training Program; ATTEND Student in an Organized Health Care Education/Training Program
PROC: 0QBR0ZZ Excision of Left Toe Phalanx, Open Approach (ICD-10-PCS; 2023-12-04)
PROC: 0Y6Y0Z0 Detachment at Left 5th Toe, Complete, Open Approach (ICD-10-PCS; principal; 2023-12-04 09:00)
DX: M86.8X7 Other osteomyelitis, ankle and foot (principal); E43 Unspecified severe protein-calorie malnutrition; L97.429 Non-pressure chronic ulcer of left heel and midfoot with unspecified severity; L03.032 Cellulitis of left toe; E11.621 Type 2 diabetes mellitus with foot ulcer; I10 Essential (primary) hypertension; Z68.33 Body mass index [BMI] 33.0-33.9, adult; Z79.899 Other long term (current) drug therapy
CPT/HCPCS: 36415; 73630; 80048; 80053; 80202; 82948; 83605; 85025; 87040; 87070; 87075; 87081; 87186; 87205; 96361; 96365; 96368; 96372; 96375; 99285; J0360; J1815; J2001; J2250; J2270; J2543; J2704; J3010; J3370; J3372; J3490; J7060; Q0092